=== PATIENT | male | born 1960 | race Caucasian/White ===

== ENCOUNTER 2025-02-25 13:17 | Outpatient (CLI) | payer BC, MEDICARE, SELFPAY ==
--- NOTE | 2025-02-25 10:42 | DI.RAD_ITS ---
Exam(s) XR HIP RT COMPLETE AP PELVIS EXAM: XR HIP RT COMPLETE AP PELVIS CLINICAL HISTORY: RIGHT HIP PAIN. TECHNIQUE: 2D digital imaging was performed. 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 There is some collapse of the superior femoral head. No acute fracture is present. No bony destructive lesion is seen. JOINTS: No dislocation present. There is mild right hip joint space narrowing and periarticular spurring.. Left hip joint space is maintained. SOFT TISSUE: Normal. IMPRESSION: Avascular necrosis with some collapse of the right femoral head. Roughly similar appearance to previous MRI. DATA REPOSITORY: RADIATION DOSE DELIVERED:
== END 2025-02-25 13:18 | disposition home or self-care (01) ==
LOC: DIORS 13:19
PROVIDERS: PCP Physician Assistant; Visit Provider Physician Assistant
DX: M25.551 Pain in right hip (principal); M87.051 Idiopathic aseptic necrosis of right femur
CPT/HCPCS: 73502

== ENCOUNTER 2025-05-09 12:18 | Outpatient (REF) | payer BC, MEDICARE, SELFPAY ==
[2025-05-09 14:41] LABS: HCT 38.0 % (40.0-50.0); HGB 12.7 g/dL (13.5-17.5); MCH 33.6 pg (27.0-33.0); MCHC 33.4 % (32.0-36.0); MCV 101 fL (80-95); MPV 11.7 fL (8.0-11.0); Platelet Count 377 10^3/uL (130-400); RBC 3.78 10^6/uL (4.36-5.78); RDW 13.2 % (11.8-14.1); RDW-SD 49.0 fL; WBC 7.97 10^3/uL (4.4-10.8)
[2025-05-09 14:58] LABS: Anion Gap 6.8 mmol/L (3-11); BUN 13 mg/dL (9-23); CO2 26.2 mmol/L (20.0-31.0); Calcium 9.9 mg/dL (8.3-10.6); Chloride 106 mmol/L (98-107); Glucose 101 mg/dL (74-106); Potassium 3.9 mmol/L (3.5-5.1); Sodium 139 mmol/L (136-145)
== END 2025-05-09 12:19 | disposition home or self-care (01) ==
LOC: LBN 12:18
PROVIDERS: PCP Physician Assistant; Visit Provider Student in an Organized Health Care Education/Training Program
DX: M87.051 Idiopathic aseptic necrosis of right femur (principal); Z01.818 Encounter for other preprocedural examination
CPT/HCPCS: 80048; 85027

== ENCOUNTER 2025-05-09 14:30 | Outpatient (CLI) | payer BC, MEDICARE, SELFPAY ==
--- NOTE | 2025-05-09 09:57 | DI.RAD_ITS ---
Exam(s) XR PELVIS AP EXAM: XR PELVIS AP CLINICAL HISTORY: OA R HIP. TECHNIQUE: 2D digital imaging was performed. COMPARISON: MR MR HIP RT WO CONTRAST from 01/10/2025 CR XR HIP RT COMPLETE AP PELVIS from 02/25/2025 FINDINGS: Single AP view both hips There is again noted unilateral avascular necrosis of the right femoral head. The appearance is unchanged from 02/25/2025 again noted mild depression of the superior cortical surface of the femoral head at this level but not progressed from previous. There is also no prominent joint space narrowing. The opposite- left hip remains unremarkable.. IMPRESSION: Avascular necrosis of the right femoral head appearing unchanged from 02/25/2025. DATA REPOSITORY: RADIATION DOSE DELIVERED:
== END 2025-05-09 14:31 | disposition home or self-care (01) ==
LOC: DIORS 14:47
PROVIDERS: PCP Physician Assistant; Visit Provider Physician Assistant
DX: M16.11 Unilateral primary osteoarthritis, right hip (principal)
CPT/HCPCS: 72170

== ENCOUNTER 2025-05-15 05:56 | Day surgery (SDC) | payer BC, SELFPAY ==
[2025-05-15] VITALS (17 sets, daily range): BP systolic 120–137; BP diastolic 63–79; PULSE 67–91; RESP 13–26; TEMP 36.4–36.8; O2SAT 94–99; BMI 23.3
[2025-05-15] MEDS: Celecoxib 200 MG CAP 400 MG PO (06:28)
[2025-05-15] MEDS: Acetaminophen 500 MG TAB 1000 MG PO (06:28)
[2025-05-15] MEDS: Lactated Ringers 1,000 ML 80 ML IV (06:41)
--- NOTE | 2025-05-15 06:57 | W.ANESPRE ---
General Info Date of Service Date Performed: 05/15/25 Height: 5 ft 9 in Weight: 71.6 kg Body Mass Index (BMI): 23.3 Surgical Procedure: Operation Date: 05/15/25 07:50 Proposed Procedure Side Surgeon p Hip Total Hip Anterior, Actis Right Jose Dior MD Meds Allergies and Home Medications Allergies Allergy/AdvReac Type Severity Reaction Status Date / Time golimumab Allergy Unknown Verified 05/15/25 07:00 Home Medication ?Medication ?Instructions ?Recorded amlodipine 5 mg tablet 7.5 mg PO DAILY 01/29/25 lisinopril 20 mg tablet 20 mg PO DAILY 01/29/25 tofacitinib 11 mg tablet,extended 11 mg PO DAILY 01/29/25 release 24 hr (Xeljanz XR) acetaminophen 500 mg tablet 1,000 mg (2 x 500 mg) PO TID #90 05/15/25 tabs aspirin 81 mg tablet,delayed 81 mg PO BID #60 tabs 05/15/25 release celecoxib 200 mg capsule 200 mg PO BID #60 caps 05/15/25 dexamethasone 4 mg tablet 4 mg PO DAILY #2 tabs 05/15/25 docusate sodium 100 mg capsule 100 mg PO BID PRN #28 caps 05/15/25 pantoprazole 40 mg tablet,delayed 40 mg PO DAILY #14 tabs 05/15/25 release tramadol 50 mg tablet 50 mg PO Q4H PRN pain #12 tabs 05/15/25 Current Visit Medications: Current Medications Generic Name Dose Route Start Last Admin Trade Name Freq PRN Reason Stop Dose Admin Acetaminophen 1,000 mg 05/15/25 06:00 05/15/25 06:28 Acetaminophen 500 Mg Tab PO 05/15/25 23:59 1,000 mg PREOP MARY Administration Celecoxib 400 mg 05/15/25 06:00 05/15/25 06:28 Celecoxib 200 Mg Cap PO 05/15/25 23:59 400 mg PREOP MARY Administration Ringer's Solution 1,000 mls @ 80 mls/hr 05/15/25 06:00 05/15/25 06:41 IV 05/15/25 23:59 80 mls/hr INFUSION MARY Administration Cefazolin Sodium/Dextrose 2 gm in 50 mls @ 100 mls/hr 05/15/25 06:00 Ancef Duplex IVPB 05/15/25 23:59 PREOP MARY Tranexamic Acid/Sodium Chloride 1,000 mg in 100 mls @ 600 mls/hr 05/15/25 06:00 IVPB 05/15/25 23:59 PREOP MARY Sodium Chloride 0 ml 05/15/25 06:00 Normal Saline Flush 10 Ml Syr IV 05/15/25 23:59 PRN PRN Sodium Chloride 0 ml 05/15/25 06:00 Normal Saline 10 Ml Vial IJ 05/15/25 23:59 DIRECTED PRN Sterile Water 0 ml 05/15/25 06:00 Water,Injection,Sterile 10 Ml Vial IJ 05/15/25 23:59 DIRECTED PRN PFSH Active Problems Active Problems: Problem Status Onset Code Avascular necrosis of bone of right hip Acute M87.051 Arthritis of right hip Acute M16.11 Eczema Acute L30.9 Tobacco user Acute Z72.0 Spongiotic dermatitis Acute L30.8 Rheumatoid arthritis Chronic M06.9 Hyponatremia Acute E87.1 Hypertensive disorder Chronic I10 Hyperlipidemia Acute E78.5 Alcohol use disorder Acute F10.90 Surgical History Surgical History Hx of tonsillectomy 3 yrs of age Tobacco Smoking/Tobacco Use Status: Current every day Tobacco Type: cigarettes Smoking packs per day: 1 Smoking cigarettes per day: 20 Alcohol Alcohol Intake: current Alcohol intake frequency: 3 or more drinks per day Alcohol type: beer Substance Use Substance use type: marijuana Vital Signs and Lab Results Vital Signs Most Recent Vital Signs in EMR: Most Recent Vital Signs Temp Pulse Resp BP Pulse Ox 36.6 C 91 H 17 137/74 98 05/15/25 06:15 05/15/25 06:15 05/15/25 06:15 05/15/25 06:15 05/15/25 06:15 Lab Results Complete Blood Count: WBC, (4.4-10.8) 7.97 10^3/uL 05/09/25, 10:40 RBC, (4.36-5.78) 3.78 10^6/uL L 05/09/25, 10:40 Hgb, (13.5-17.5) 12.7 g/dL L 05/09/25, 10:40 Hct, (40.0-50.0) 38.0 % L 05/09/25, 10:40 Plt Count, (130-400) 377 10^3/uL 05/09/25, 10:40 Complete Metabolic Panel: Sodium, (136-145) 139 mmol/L 05/09/25, 10:40 Potassium, (3.5-5.1) 3.9 mmol/L 05/09/25, 10:40 Chloride, (98-107) 106 mmol/L 05/09/25, 10:40 Carbon Dioxide, (20.0-31.0) 26.2 mmol/L 05/09/25, 10:40 BUN, (9-23) 13 mg/dL 05/09/25, 10:40 Creatinine, (0.73-1.18) 0.76 mg/dL 05/09/25, 10:40 Est GFR (CKD-EPI 2020), (mL/min/1.73m2) 102.64 05/09/25, 10:40 Calcium, (8.3-10.6) 9.9 mg/dL 05/09/25, 10:40 Glucose, (74-106) 101 mg/dL 05/09/25, 10:40 Anesthesia Assessment and Plan Anesthesia History Personal History: Unknown Anesthesia History Family History: No Family History of Anesthesia Complications Exercise Tolerance Exercise Tolerance: Metabolic Equivalents>4 Pertinent Negatives Pertinent Negatives: No Symptoms of GERD, No Major Cardiovascular Symptoms or Complaints and No Major Pulmonary Symptoms or Complaints Cardiac & Pulmonary Exam Cardiac Exam: Normal S1/S2 Heart Sounds Pulmonary Exam: Clear Bilateral Breath Sounds Implantable Cardiac Device Does patient have a Pacemaker or an ICD?: No Airway Exam Known Difficult Airway: No Mallampati Class: 2 Mouth Opening: Normal (> 3cm) Thyromental Distance: Greater than 3 cm Neck Range of Motion: Full ROM Neck Circumference: Normal Teeth Condition: Loose or Chipped (multiple broken but none loose per pt) ASA Classification ASA Score: ASA 2 Emergency Case?: No NPO Status NPO Status: NPO Clears >2 hours, Solids >8 hours Anesthesia Plan Resuscitation Status: Full Code Anesthesia Technique: Spinal Anesthesia Airway Planned: Natural Airway Monitors Used: Standard Monitors Preoperative Comments:: Dago MORA held x 1 week as directed
--- NOTE | 2025-05-15 07:14 | PDOC.DSDIS_ITS ---
Date of service: 05/15/25 Discharge Plan Disposition Patient Disposition: Home Condition: Good Discharge Details Reason For Visit: R THR Attending Provider: Jose Dior Primary Care Provider: Kirstin Garcia Home Meds and New Rx's Prescriptions: New acetaminophen 500 mg tablet 1,000 mg PO TID Qty: 90 3RF aspirin 81 mg tablet,delayed release (DR/EC) 81 mg PO BID Qty: 60 0RF celecoxib 200 mg capsule 200 mg PO BID Qty: 60 0RF dexamethasone 4 mg tablet 4 mg PO DAILY Qty: 2 0RF docusate sodium 100 mg capsule 100 mg PO BID PRNQty: 28 0RF tramadol 50 mg tablet 50 mg PO Q4H PRN (Reason: pain) Qty: 12 0RF pantoprazole 40 mg tablet,delayed release (DR/EC) 40 mg PO DAILY Qty: 14 0RF Continued amlodipine 5 mg tablet 7.5 mg PO DAILY lisinopril 20 mg tablet 20 mg PO DAILY Xeljanz XR 11 mg tablet extended release 24 hr 11 mg PO DAILY Discharge Instructions Additional Instructions: Total Hip Discharge Instructions Activity: The most important activity is to walk. You should try to take short walks a few times a day. You have no restrictions on movement or positioning, but do not try to force what you do. You will find some stiffness and weakness with hip flexion (lifting your knee). Do not try to strengthen this too early, continue to practice walking and stairs and this will come. - Outpatient physical therapy can be helpful to help return you to a normal gait and improve your flexibility and strength. This can start around 2 weeks. For some patients, it?s not necessary. Usually this is determined at the time of discharge or at the first post-operative visit. - You should wear the AN hose on both legs for 2 weeks. Dressing: Keep the surgical dressing in place for at least one week. After the first week it may be removed and replace with light gauze and tape or nothing. It may get wet after 3 days but avoid soaking the dressing. If it gets wet, just lightly pat dry. It is important to always keep some gauze between skin folds, especially when you are sitting. Spend some time with the wound exposed when you are lying flat as the incision does wrinkle onto itself. Medications: - You should take Tylenol and an anti-inflammatory Celebrex as your primary pain control medications. If the Celebrex is too expensive or not covered, please call the office for another alternative (Advil/Ibuprofen or Naproxen/Aleve). - You have been prescribed a stronger pain medication Oxycodone for breakthrough pain, take as needed as prescribed. - You have also been prescribed a stomach acid reduction agent Pantoprozole to help reduce stomach acid and reflux. - You have also been prescribed Decadron to help with post-operative nausea and pain. You will take this for two days starting tomorrow. - You will be taking Aspirin 81mg twice a day for DVT prevention unless instructed otherwise. - If you have constipation you should take Colace or Miralax (both [id number]). It takes most people 3-4 days to have a bowel movement. Follow-up: 2 weeks If you have any acute concerns or questions, please do not hesitate to contact the office at [phone]. You may contact Dr. Dior with any questions after hours through the hospital at [phone] or on his cell phone at [phone]. Stand Alone Forms: Portal Information Referrals: Jose Dior MD [ [facility] STAFF PHYSICIAN, Orthopaedic Surgical] Equipment/Supplies: Walker Activity:: Activity as Tolerated Shower/Bathe:: 72 hours Diet:: As Tolerated Discharge Orders Discharge Orders: Discharge Order (Routine); Ordered 05/15/25 Ordered By: Ernie Tao DS: Diagnosis Discharge Diagnosis (1) Avascular necrosis of bone of right hip: Status: Acute (2) Arthritis of right hip: Status: Acute
[2025-05-15] MEDS: ceFAZolin 2 GM/50 ML BAG IVPB (07:33)
[2025-05-15] MEDS: TRANEXAMIC ACID/SOD. CHL. 1,000 MG/100 ML BAG 600 MG IVPB (07:48)
[2025-05-15] MEDS: ROPIvacaine/EPI/CLONIDINE/KET 50 ML SYRINGE IJ (08:05)
--- NOTE | 2025-05-15 08:35 | DI.RAD_ITS ---
Exam(s) XR HIP RT IN OR EXAM: XR HIP RT IN OR CLINICAL HISTORY: RIGHT HIP ARTHRITIS. TECHNIQUE: 2D and realtime digital imaging was performed. COMPARISON: CR XR PELVIS AP from 05/09/2025 FINDINGS: Hard copy images show placement of a right hip prosthesis. The alignment appears satisfactory. Please see procedure note for details. Fluoro time: 22.1seconds RADIATION DOSE DELIVERED: Ka,r=2.13 mGy
--- NOTE | 2025-05-15 08:50 | ROE_ITS ---
Operative Note Operative Note PRE-OP DIAGNOSIS: Right Hip Osteoarthritis POST-OP DIAGNOSIS: same PROCEDURE: Right Anterior Total Hip Arthroplasty with Intraoperative Navigation SURGEON: Jose Dior WEB MARKETING ANALYST: Ernie Tao ANESTHESIA TYPE: Spinal Refer to Anesthesia Record ESTIMATED BLOOD LOSS: 100 PATHOLOGY: none sent TOURNIQUET TIME: 0 COMPLICATIONS: None Patient was transported to: PACU Patient's condition: stable Implants: 1. Depuy [place] Acetabular Component, 54mm 2. Depuy Acetabular Liner, [id number] 3. Depuy Actis High Offset Collared Femoral Stem, Size 8 4. Depuy Altrx Ceramic Femoral Head, Size 36+1.5mm Indications: I have seen Beto in clinic for symptoms of hip arthritis, confirmed with radiographic findings. He has exhausted nonoperative methods and was having significant limitations in daily function and desired better function and less pain. I discussed the technical details of a hip replacement. I explained the risks of the procedure to include, but not limited to, bleeding, infection, pain, stiffness, fracture, damage to nerves and vessels, damage to muscles and tendons, loosening, instability, leg length inequality, need for repeat procedure, blood clot and cardiopulmonary demise. Despite these risks, Beto elected to proceed. Findings: There was significant signs of arthritis throughout the hip with notable flattening and deformity of the superior femoral head. Procedure Description: Beto was greeted in the preoperative holding area where the correct side was identified and marked. The consent was reviewed with the patient and signed. The history and physical was updated. All questions were answered. He was taken back to the operating room. A spinal anesthestic was then administered. The feet were wrapped with cast padding and Coban and then placed into the boot liners and then into the boots. Care was taken to protect the skin and make sure the heels were fully down and the boots were stable. The patient was then positioned onto the HANA table. Both legs were held in a neutral position. SCDs were applied. The patient was then slid down onto a peroneal post. Prophylactic antibiotics in the form of Cefazolin were administered. 1g of Tranxemic Acid was given intravenously within 30 minutes of incision. The right leg was then prepped with Chloraprep and draped in a standard fashion. A second prep with Chloraprep was performed prior to plac ement of a shower-curtain type drape with Iodine impregnated skin protection. A timeout to confirm correct identity, side and site, procedure, allergies, anesthesia, and medical concerns was performed. An obliquely oriented incision was made starting lateral to the ASIS and running distal over the Tensor Fascia Humera (TFL) muscle belly toward the fibular head, approximately 10cm. The skin and soft tissue was dissected sharply, through Chacorta?s fascia, and to the fascia of the TFL. With the fascia and superior border of the IT band identified, the fascia was incised with a new knife just above any perforators from the IT band. The TFL muscle belly was bluntly dissected away from the fascia and moved laterally. The fat between TFL and rectus was identified to ensure the dissection was not within the TFL. Blunt dissection created space between abductors and the capsule and retractor was placed over the lateral femoral neck. The fibers of the rectus femoris tendon were identified and these were freed from the anterior capsule. A second cobra retractor was placed around the medial femoral neck. The TFL was further retracted laterally to show the deep fascia. Careful dissection through this layer identified three main crossing vessels of the lateral femoral circumflex. These were cauterized in multiple locations and then cut without any noticeable bleeding. The TFL was further released bluntly from the deep fascia to expose anterior hip capsule and fat The soft tissue orthopaedic retractor was then placed beneath the TFL and against sartorius and medial soft tissues to protect and retract the soft tissues. A T-capsulotomy was then performed starting at the superior lateral acetabulum and moving distally to the intertrochanteric ridge. These capsular flaps were tagged with a No. 1 Vicryl and elevated from within. The capsular flaps were released to the shoulder of the lateral neck and to the lesser trochanter to give excellent visualization of the proximal femur. A neck osteotomy was performed using an oscillating saw based on preoperative templates. This cut started in the shoulder and of the lateral neck and exited medially. The saw was at all times directed medially to avoid injury to the greater trochanter. Gross traction was applied to the leg and the osteotomy opened. The femoral head was removed with a corkscrew, making sure to protect the TFL on its exit. Traction was released after head removal. This was measured on the back table to determine the starting reamer size. Portions of the rectus obscuring visualization were minimally elevated off the superior acetabulum. An anterior retractor was placed over the anterior wall between capsule and labrum and attached to the Gripper retraction system. The femur was rotated to 90 degrees and medial capsule was fully released until the lesser trochanter was palpable and visible; the femur was returned to 30 degrees. A posterior retractor was placed similarly between capsule and labrum. This provided excellent visualization. The contents of the cotyloid fossa were removed with electrocautery and the labrum was removed with a knife. There was a notable floor osteophyte. There was significant chondromalacia of the superior acetabulum. Acetabular reaming began with a 50mm reamer. This first reaming was directed anterior to posterior and medial to get down to the true floor. This was inspected and reamed until the true floor was reached. The anterior retractor was then released and entry and exit was provided by traction on the capsular flaps. I then reamed sequentially up to a 54mm reamer where good fit was obtained. The larger reamers were oriented based on anatomical reference of the anterior and lateral rodríguez to ensure proper abduction and anteversion. Positioning and size was confirmed with the fluoroscopy. A 54mm Depuy [place] acetabular component was selected. The acetabulum was reamed around the periphery with the selected acetabular size to prevent a rim fit. The deep tissues were irrigated. The acetabular component was then impacted in a position of about 40-45 degrees of abduction and 15-20 degrees of anteversion, using the patient?s anatomy as the ultimate landmark. Fluoroscopy was used to confirm this. There was excellent computer systems information director of the acetabular component and the inserting handle was removed. The acetabular liner, Depuy [id number] polyethylene liner, was inserted and lined up with the tines of the acetabular component. There was no soft tissue interposition. The liner was then impacted into position and confirmed to be well-seated. A portion of the leena-articular cocktail was then injected around the acetabulum into the capsule and periosteum. This cocktail consisted of 123mg of Ropivacaine, 0.25mg of Epinephrine, 0.04mg of Clonidine, and 15mg of Ketorolac, diluted to 50cc. The leg was rotated to 120 degrees. Any remaining medial capsule was released until the lesser trochanter was easily palpable. A retractor was placed medially. The lateral capsule was further released into the shoulder to allow access to the greater trochanter. A Jordan retractor was placed over the greater trochanter which allowed the trochanter to flip in front of the capsule for excellent exposure. The leg was brought down into maximal extension and 20 degrees of adduction while ensuring there was no impingement on the acetabulum. Any remnant capsule within the trochanter was released. Piriformis and obturator externis were identified and protected. There was excellent access to the proximal femur. The lateral neck remnant was removed with a rongeur. A blunt canal probe was used to identify the canal and trajectory for later broaching. A box osteotome initiated the broach course. A small curved rasp and a curved curette were used to work laterally. Broaching then began with a starter Actis broach. This was inserted manually around the trochanter and into the canal before mallet blows. The broach was seated to a few millimeters below the cut level based on the neck cut and the preoperative template. Sequential broaching was continued with the [employer] pneumatic broaching device until a tight fit was obtained with good rotational control of the femur. A trial standard neck was inserted along with a +8.5 trial head. The leg was brought out of extension and adduction and then reduced with traction and internal rotation. The leg was stable anteriorly in a position of 30 degrees of extension and 90 degrees of external rotation. Fluoroscopy was used to ensure there was no fracture and the stem was seated well. Leg lengths were checked with an AP pelvis and pelvic reference points. Kivun Hadash navigation system was used to confirm appropriate positioning and leg length and offset. This had closely corrected the offset but overcorrected the leg length, therefore went to a high offset stem with a +1.5 mm head. Once content with the desired offset and leg lengths, the leg was brought back into extension, external rotation and adduction. The periosteum and surrounding tissue was injected with remaining portion of the leena-articular cocktail. The proximal femur was irrigated as well as the deep tissues. The Depuy Actis High Offset collared stem, size 8, was then manually inserted into the proximal femur making sure to control rotation. It was then malleted into position with light blows, giving breaks to allow bone expansion and decrease risk of fracture. The selected Depuy Altrx Ceramic Head, size 36+1.5mm, was then placed onto the clean and dry trunnion and secured with impaction onto the tapered fit. The leg was brought back out of extension and adduction and reduced with traction and internal rotation. Stability was confirmed with no shuck at 90 deg yusef of external rotation and 30 degrees of extension. No impingement through range of motion arc. Final x-ray images were obtained with fluoroscopy to confirm adequate positioning and no intraoperative fracture. The deep tissues were thoroughly irrigated with Surgiphor, betadine solution. This was allowed to sit in the wound for 3 minutes before being thoroughly irrigated out with normal saline. The capsule was then reapproximated with the previously placed sutures and the indirect head of the rectus was inspected and reapproximated with a #1 Vicryl. The TFL fascia was finally closed with a No. 2 Stratafix, barbed suture. Deep tissues were then reapproximated with 0 Vicryl and a running 2-0 Vicryl. The skin was closed with a running 4-0 Monocryl in a subcuticular fashion. This was reinforced with skin glue. A Mepilex silver dressing was applied. At the end of the case, all counts were correct. Beto was transferred to the hospital bed without difficulty and suffering no apparent complication. He has a good prognosis. Physical therapy will start today and without restrictions, weight-bearing as tolerated. Aspirin 81mg BID will be used for DVT prophylaxis. Date of Procedure: 05/15/25
--- NOTE | 2025-05-15 10:00 | W.ANESPOSTOP ---
Postoperative Evaluation Date, Time and Location Date Performed: 05/15/25 Time Performed: 10:00 Patient Location: Day Surgery Unit Vital Signs Most Recent Imported Vital Signs: Most Recent Vital Signs Temp Pulse Resp BP Pulse Ox 36.7 C 78 17 120/72 98 05/15/25 09:20 05/15/25 09:20 05/15/25 09:20 05/15/25 09:20 05/15/25 09:20 Pain Score Most Recent Pain Score: Most Recent Pain Score Pain Level 0 05/15/25 09:20 Assessment Mental Status: Awake (Alert & Oriented to Patient Baseline) Airway and Respiratory Function: Patent airway with normal (patient baseline) respiratory exam Cardiovascular Function: Hemodynamically Stable Hydration Status: Adequately Hydrated Nausea & Vomiting: No Nausea or Vomiting Pain: Pain is tolerable per patient Peripheral Nerve Block: Patient did not receive a nerve block
[2025-05-15] MEDS: Tranexamic Acid 650 MG TAB 1300 MG PO (10:01)
--- NOTE | 2025-05-15 10:43 | PT.INIE ---
PT Notes Visit Reasons: R THR Physical Therapy Day Surgery Initial Evaluation Date: 05/15/2025 Referring Doctor: PARVIN Mooney/ Dr Dior PT Orders: PT CONSULT: PT evaluation and treatment s/p Ortho Surgery Precautions: WBAT RLE, TEDs x 2 weeks Patient Profile/Admitting Diagnosis: Pt is a 64 yo male presenting s/p elective right ALICIA d/t AVN under Spinal Anesthesia by Dr Dior on 05/15/2025. Post op uncomplicated PMHX: Avascular necrosis of bone of right hip (Acute) Arthritis of right hip (Acute) Eczema (Acute) Tobacco user (Acute) Spongiotic dermatitis (Acute) Rheumatoid arthritis (Chronic) Hyponatremia (Acute) Hypertensive disorder (Chronic) Hyperlipidemia (Acute) Alcohol use disorder (Acute) Social History/Home Situation: Pt resides with in 2 story home with 2 steps without rails to deck then step into home. Pt has FOS to primary Bedroom however will be staying on the first floor guest room initially. Pt independent ambulation without AD, Independent ADL, (+) drives, retired Equipment Owned/DME: No DME ; issued and fitted for FWW Subjective: Pt reports he feels good, He states his son will be at the house to assist him in. Objective: [] General Observation: alert male semireclined on stretcher with ice to right hip; present in room Mental Status: A+ Ox4, cooperative, able to follow instructions, agreeable to participate in assessment Pain: right hip 2/10 ROM: [] BUE: WNL Right Lower Extremity: Hip flexion 95 degrees, hip abduction 20 degrees, hip extension 5 degrees, knee and ankle WNL Left Lower Extremity: WNL Strength: [] BUE: 5/5 Right Lower Extremity: Hip flexion: 3/5; hip abduction: 3-/5; hip extension: 3 /5; knee extension: >/= to 3 /5; knee flexion: 3- /5 ankle DF: 4/5 ; ankle PF: 4/5 Left Lower Extremity: grossly 5/5 Sensation: intact to pain and touch Bed Mobility/Transfers: [] Supine to sit Supervision Sit to stand SBA with cue to push up from surface Stand to sit SBA with cue to reach back Bed to chair SBA with FWW Gait:amb with FWW 150 feet SBA initially with step to pattern progressed to reciprocal with decreased step length Stairs: 2 6 inch steps with 2 rails SBA with cues for sequencing step to pattern Balance: [] Static Sitting: Normal Dynamic Sitting:Good Static Standing: Normal Dynamic Standing: Good Special Tests: [] Mobility Limitations Standardized Measure [] [facility] AM-PAC 6 clicks Basic Mobility Inpatient Short Form: [] Raw Score: 23 CMS Score: 11.2% Informed Consent/Education: Patient instructed in purpose of PT consult. Packet containing ALICIA exercise protocol has been given to patient. Education and training on initial set of 5 reps of exercises that can be done at home have been completed with patient. Treatment 45834: and pt training for 2 stairs without rail with use of FWW instructed to hold FWW in place on 2nd step/deck as pt steps up the 2 steps to simulate entering home Assessment: Patient is a 64 yo male who presents with clinical signs and symptoms consistent with current/admitting diagnoses that have resulted to mobility limitations, gait instability, generalized weakness, and impairment of motor control as demonstrated by the following impairment level findings: 1. Decreased strength to right hip major muscle groups 2. Impaired standing balance 3. Limitation of joint range of motion in right hip 4. Pain right hip 5. Impaired functional activity tolerance Impairments are contributing to the following functional limitations: 1. Inability to safely ambulate without assistive device 2. Increase completion time for mobility ADL performance 3. Increased fall risk 4. Difficulty performing stairs without assistance Patient is assessed as a low complexity based on the following: History: 64-year-old male with impairment level findings, functional limitations, and past medical history as indicated above Examination: Demonstrable impairment in strength, balance, and mobility level with underlying impairments and functional limitations as documented above Presentation: stable Decision Making: low Goals: N/A. PT evaluation and 1-2 treatment sessions only for functional mobility training using recommended AD and for HEP instruction. Plan of Care/Treatment Plan: N/A. PT evaluation and 1-2 treatment session only for functional mobility training using recommended AD and for HEP instruction. DISCHARGE RECOMMENDATIONS: Home with HEP and Ortho f/u as scheduled TREATMENT CODE/TIME: 67500, 19640/ [id number] Thank you for the opportunity to participate in the care of this patient. Stacy Thornton PT [facility]
== END 2025-05-15 11:04 | disposition home or self-care (01) ==
PROVIDERS: PCP Physician Assistant; Visit Provider Student in an Organized Health Care Education/Training Program
PROC: (CPT 27130; principal; 2025-05-15 07:30)
DX: M16.11 Unilateral primary osteoarthritis, right hip (principal); M87.051 Idiopathic aseptic necrosis of right femur
CPT/HCPCS: 27130; 20985; 97161; 97530; 73501; C1776; J0690; J1100; J2003; J2250; J2371; J2401; J2405; J2704

== ENCOUNTER 2025-05-27 12:12 | Outpatient (CLI) | payer BC, SELFPAY ==
--- NOTE | 2025-05-27 11:15 | DI.RAD_ITS ---
Exam(s) XR HIP RT COMPLETE AP PELVIS EXAM: XR HIP RT COMPLETE AP PELVIS CLINICAL HISTORY: 1ST POST OP S/P R ALICIA. TECHNIQUE: 2D digital imaging was performed. Two images were obtained. AP pelvis and lateral hip views were obtained. COMPARISON: CR XR HIP RT COMPLETE AP PELVIS from 02/25/2025 CR XR PELVIS AP from 05/09/2025 XA XR HIP RT IN OR from 05/15/2025 FINDINGS: BONES: There are stable post operative changes of a right total hip arthroplasty present. No fracture or dislocation. JOINTS: The orthopedic hardware is in good position. No evidence of hardware loosening. SOFT TISSUE: Normal. IMPRESSION: Stable right total hip arthroplasty. DATA REPOSITORY: RADIATION DOSE DELIVERED:
== END 2025-05-27 12:13 | disposition home or self-care (01) ==
LOC: DIORS 12:12
PROVIDERS: PCP Physician Assistant; Visit Provider Student in an Organized Health Care Education/Training Program
DX: M87.051 Idiopathic aseptic necrosis of right femur (principal); Z96.641 Presence of right artificial hip joint
CPT/HCPCS: 73502